=== PATIENT | male | born 1965 | race Caucasian/White ===

== ENCOUNTER 2024-06-11 07:04 | Day surgery (SDC) | payer MEDICARE, BC ==
[2024-06-08 11:38] VITALS: BMI 33.1
[2024-06-11] MEDS ORDERED: Lidocaine 1% PF 5 ML VIAL ONE (07:33)
[2024-06-11] MEDS ORDERED: Rocuronium Bromide 10 MG/ML (10ML VIAL) ONE (07:33)
[2024-06-11] MEDS ORDERED: PROPOFOL 20 ML ONE (07:33)
[2024-06-11] MEDS ORDERED: Vancomycin 1 GM VIAL ONE (07:44)
[2024-06-11] MEDS ORDERED: CEFAZOLIN 2 GM VIAL ONE (07:59)
[2024-06-11] MEDS ORDERED: fentaNYL PF 100 MCG/2 ML SYRINGE ONE (08:12)
[2024-06-11 08:15] LABS: #Basophils 0.06 10x3/uL (0.0-0.2); %Basophils 0.9 % (0.0-1.0); %Eosinophils 2.1 % (0.0-10.0); %Lymphocytes 28.2 % (21.0-51.0); %Monocytes 11.7 % (0.0-10.0); %Neutrophils 56.8 % (42.0-75.0); Hematocrit 50.2 % (42.0-52.0); Hemoglobin 16.7 g/dL (14.0-18.0); Mean Corpuscular HGB CONC 33.3 g/dL (32.0-36.0); Mean Corpuscular Volume 93.1 fL (78.0-98.0); Mean Platelet Volume 9.4 fL (7.4-10.4); Platelet Count 214 10x3/uL (130-400); RBC Distribution Width 13.1 % (11.5-14.5); Red Blood Cell (RBC) Count 5.39 mill/uL (4.70-6.10)
[2024-06-11 08:31] LABS: Anion Gap 14 mmol/L (10-20); BUN (Urea Nitrogen) 14 mg/dL (8.4-25.7); Calc. Creatinine Clearance 141 mL/min (70-130); Calcium 9.1 mg/dL (7.8-10.44); Carbon Dioxide 22 mmol/L (22-29); Chloride 104 mmol/L (98-107); Estimated GFR 95; Glucose 107 mg/dL (70-105); Potassium 4.2 mmol/L (3.5-5.1); Sodium 136 mmol/L (136-145)
[2024-06-11] MEDS ORDERED: Dexamethasone 20 MG/5 ML VIAL ONE (09:04)
[2024-06-11] MEDS ORDERED: Ondansetron PF 4 MG/2 ML Vial ONE (09:04)
[2024-06-11] MEDS ORDERED: Ketorolac Tromethamine 30 MG (1 mL) VIAL ONE (09:21)
[2024-06-11] MEDS ORDERED: SUGAMMADEX SODIUM 200 MG/2 ML VIAL ONE (09:31)
[2024-06-11] MEDS ORDERED: Tamsulosin HCl 0.4 MG CAP ONE (10:01)
[2024-06-11] MEDS ORDERED: Morphine 2 MG/ML VIAL ONE (10:40)
[2024-06-11] MEDS ORDERED: Acetaminophen 325 MG (10.15 ML) UDCUP ONE (11:01)
[2024-06-11] MEDS ORDERED: oxyCODONE 5 MG TAB ONE (11:01)
== END 2024-06-11 11:55 | disposition home or self-care (01) ==
LOC: SDC 07:04
PROVIDERS: ATTEND Neurological Surgery
PROC: 00PV0MZ Removal of Neurostimulator Lead from Spinal Cord, Open Approach (ICD-10-PCS; principal; 2024-06-11)
DX: M54.12 Radiculopathy, cervical region (principal); I10 Essential (primary) hypertension; E78.5 Hyperlipidemia, unspecified; J44.9 Chronic obstructive pulmonary disease, unspecified; K21.9 Gastro-esophageal reflux disease without esophagitis; Z86.16 Personal history of COVID-19; Z98.52 Vasectomy status; Z91.048 Other nonmedicinal substance allergy status; Z88.5 Allergy status to narcotic agent; Z79.51 Long term (current) use of inhaled steroids; Z79.899 Other long term (current) drug therapy
CPT/HCPCS: 63662; 80048; 85025; 93005; C1713; J1100; J1885; J2272; J2405; J2704; J3370; 93010

== ENCOUNTER 2024-06-25 06:35 | Observation (INO) | payer MEDICARE, BC ==
[2024-06-25] MEDS ORDERED: Ondansetron PF 4 MG/2 ML Vial ONE (07:08)
[2024-06-25] MEDS ORDERED: Rocuronium Bromide 10 MG/ML (10ML VIAL) ONE (07:08)
[2024-06-25] MEDS ORDERED: Lidocaine 1% PF 5 ML VIAL ONE (07:08)
[2024-06-25] MEDS ORDERED: Dexamethasone 4 mg/ml Vial ONE (07:08)
[2024-06-25] MEDS ORDERED: PROPOFOL 20 ML ONE (07:08)
[2024-06-25] MEDS ORDERED: Ketamine In 0.9 % NaCl 50 MG/5 ML SYRINGE ONE (07:08)
[2024-06-25] MEDS ORDERED: HYDROmorphone 2 MG/ML VIAL ONE (07:08)
[2024-06-25] MEDS ORDERED: Vancomycin 1 GM VIAL ONE (07:35)
[2024-06-25] MEDS ORDERED: Midazolam HCl 2 mg/2 ml Vial ONE (08:02)
[2024-06-25] MEDS ORDERED: CEFAZOLIN 2 GM VIAL ONE (08:02)
[2024-06-25 08:25] LABS: #Basophils 0.04 10x3/uL (0.0-0.2); %Basophils 0.5 % (0.0-1.0); %Eosinophils 2.6 % (0.0-10.0); %Lymphocytes 31.2 % (21.0-51.0); %Monocytes 11.1 % (0.0-10.0); %Neutrophils 54.2 % (42.0-75.0); Hematocrit 47.4 % (42.0-52.0); Hemoglobin 15.8 g/dL (14.0-18.0); Mean Corpuscular HGB CONC 33.3 g/dL (32.0-36.0); Mean Corpuscular Hemoglobin 30.7 pg (27.0-31.0); Mean Platelet Volume 9.5 fL (7.4-10.4); Platelet Count 202 10x3/uL (130-400); RBC Distribution Width 13.3 % (11.5-14.5); Red Blood Cell (RBC) Count 5.15 mill/uL (4.70-6.10)
[2024-06-25 08:40] LABS: Anion Gap 12 mmol/L (10-20); BUN (Urea Nitrogen) 16 mg/dL (8.4-25.7); Calc. Creatinine Clearance 152 mL/min (70-130); Calcium 9.4 mg/dL (7.8-10.44); Carbon Dioxide 23 mmol/L (22-29); Chloride 107 mmol/L (98-107); Estimated GFR 100; Glucose 117 mg/dL (70-105); Potassium 4.1 mmol/L (3.5-5.1); Sodium 138 mmol/L (136-145)
[2024-06-25] MEDS ORDERED: Promethazine 25 MG TAB PO PRN (08:53)
[2024-06-25] MEDS ORDERED: Acetaminophen 325 MG TAB PO PRN (08:53)
[2024-06-25] MEDS ORDERED: diphenhydrAMINE 50 MG/ML VIAL IVP PRN (08:53)
[2024-06-25] MEDS ORDERED: Mag-Al 1200 mg/1200 mg/30 ML UDCUP PO PRN (08:53)
[2024-06-25] MEDS ORDERED: Ondansetron PF 4 MG/2 ML Vial IVP PRN (08:53)
[2024-06-25] MEDS ORDERED: Doxepin HCl 25 MG CAP PO PRN ×2 (08:56→15:53)
[2024-06-25] MEDS ORDERED: SUGAMMADEX SODIUM 200 MG/2 ML VIAL ONE (09:27)
[2024-06-25] MEDS ORDERED: fentaNYL PF 100 MCG/2 ML SYRINGE ONE (10:25)
[2024-06-25] MEDS ORDERED: fentaNYL 50 mcg/mL 1 mL Vial ONE ×3 (10:50→13:14)
[2024-06-25] MEDS ORDERED: Cyclobenzaprine 10 MG TAB ONE (11:06)
[2024-06-25] MEDS: Cyclobenzaprine 10 MG TAB PO PRN (11:12)
[2024-06-25] MEDS: Sodium Chloride 0.9% 1,000 ML IV SCH (14:57)
[2024-06-25] MEDS: Pregabalin 75 MG CAP PO SCH (14:57)
[2024-06-25] MEDS: Hydrochlorothiazide 25 MG TAB PO SCH (14:58)
[2024-06-25] MEDS: oxyCODONE/Acetaminophen 5 mg/325 mg Tablet PO PRN (14:58)
[2024-06-25] MEDS: Famotidine 20 MG TAB PO SCH (14:58)
[2024-06-25] MEDS: CEFAZOLIN 2 GM in Sodium Chloride 0.9% 100 ML IVPB SCH (15:08)
[2024-06-25] MEDS: Lisinopril 20 MG TAB PO SCH (15:13)
[2024-06-25] MEDS ORDERED: oxyCODONE/Acetaminophen 5 mg/325 mg Tablet PO PRN (15:21)
[2024-06-25] MEDS ORDERED: Albuterol 200 PUFF INH INH PRN (15:28)
[2024-06-25] MEDS ORDERED: Lidocaine 4% Patch TD SCH (15:30)
[2024-06-25] MEDS: Morphine 2 MG/ML VIAL SLOW IVP PRN (16:16)
[2024-06-25] MEDS: Pantoprazole DR 40 MG TAB PO SCH (16:19)
[2024-06-25] MEDS: Ipratropium/Albuterol 3 ML NEB NEB SCH (19:25)
[2024-06-25] MEDS: Mometasone 100 MCG HFA INHALER (RT USE) INH SCH (19:30)
[2024-06-25] MEDS: Doxepin HCl 25 MG CAP PO SCH (20:39)
[2024-06-25] MEDS: Montelukast Sodium 10 mg Tablet PO SCH (20:39)
[2024-06-25] MEDS: Atorvastatin Calcium 20 MG TAB PO SCH (20:39)
[2024-06-25] MEDS: Cyclobenzaprine 10 MG TAB PO SCH (20:39)
[2024-06-25] MEDS: Ibuprofen 800 MG TAB PO SCH (20:40)
[2024-06-25] MEDS ORDERED: Montelukast Sodium 10 mg Tablet PO SCH (21:00)
[2024-06-25] MEDS ORDERED: Pregabalin 75 MG CAP PO SCH (21:00)
[2024-06-25] MEDS: Milk Of Magnesia 30 ML UDCUP PO PRN (21:37)
[2024-06-26] MEDS: Sodium Chloride 0.9% 500 ML IV SCH (01:14)
[2024-06-26] MEDS ORDERED: Lisinopril 20 MG TAB PO SCH (09:00)
[2024-06-26] MEDS ORDERED: Famotidine 20 MG TAB PO SCH (09:00)
[2024-06-26] MEDS ORDERED: Pantoprazole DR 40 MG TAB PO SCH (09:00)
[2024-06-26] MEDS ORDERED: LINZESS 290 MCG CAP PO SCH (09:00)
[2024-06-26] MEDS: FLU (Fluarix Triv) TS24-25(6MOS UP)/PF 45 MCG/0.5 ML Syringe IM ONE (09:05)
[2024-06-26] MEDS: Fluticasone Propionate Nasal Spray 16 gm Bottle NASAL SCH (09:08)
[2024-06-26] MEDS: Hydrochlorothiazide 25 MG TAB PO SCH (09:08)
[2024-06-26 12:07] VITALS: BMI 28.4
[2024-06-26 12:18] VITALS: BP 99/64; TEMP 98.9
[2024-07-02] MEDS ORDERED: TIRZEPATIDE 7.5 MG/0.5 ML SC SCH (09:00)
[2024-07-02] MEDS ORDERED: TESTOSTERONE CYPIONATE 200 MG/ML IM SCH (09:00)
== END 2024-06-26 13:45 | disposition home or self-care (01) ==
LOC: INTOOBSV 06:35 → SURG A 06:35 → T4-B 14:46
PROVIDERS: ADMIT Neurological Surgery; ATTEND Neurological Surgery
PROC: 0SG0071 Fusion of Lumbar Vertebral Joint with Autologous Tissue Substitute, Posterior Approach, Posterior Column, Open Approach (ICD-10-PCS; principal; 2024-06-25)
DX: M48.062 Spinal stenosis, lumbar region with neurogenic claudication (principal); I10 Essential (primary) hypertension; E78.5 Hyperlipidemia, unspecified; G89.29 Other chronic pain; Z79.899 Other long term (current) drug therapy; Z88.5 Allergy status to narcotic agent; Z91.048 Other nonmedicinal substance allergy status
CPT/HCPCS: 20930; 20936; 22612; 22830; 22840; 22853; 80048; 85025; 94640 ×3; 97116; C1713; C1889; J1100; J2250; J2272; J2405; J2704; J3010; J3370; J3490; J7030; 36415; J7620